=== PATIENT | female | born 1955 | race Caucasian/White ===

== ENCOUNTER → 2019-05-29 | Day surgery (SDC) | payer MEDICARE, OTHER ==
[2019-05-23 11:48] LABS: BASOPHILS # (AUTO) 0.1 (0.0-0.1); BASOPHILS % 0.7 % (0.0-1.0); EOSINOPHILS # (AUTO) 0.2 (0.0-0.4); EOSINOPHILS % 1.6 % (0.0-6.0); HEMATOCRIT 40.7 % (34.2-44.1); HEMOGLOBIN 12.8 g/dL (12.0-16.0); LYMPHOCYTES # (AUTO) 1.6 (1.0-3.2); LYMPHOCYTES % 17.8 % (18.0-39.1); MEAN CORPUSCULAR HEMOGLOBIN 27.8 pg (28-32); MEAN CORPUSCULAR HGB CONC 31.4 g/dL (31-35); MEAN CORPUSCULAR VOLUME 88.3 fL (81-99); MONOCYTES % 10.7 % (4.4-11.3); NEUTROPHILS # (AUTO) 6.3 (2.1-6.9); NEUTROPHILS % 68.9 % (38.7-80.0); PLATELET COUNT 226 x10e3/uL (140-360); RED BLOOD COUNT 4.61 x10e6/uL (3.6-5.1); RED CELL DISTRIBUTION WIDTH 13.5 % (11.7-14.4)
[2019-05-23 12:26] LABS: ALANINE AMINOTRANSFERASE 37 IU/L (0-55); ALBUMIN 3.7 g/dL (3.5-5.0); ALBUMIN/GLOBULIN RATIO 0.9 (0.8-2.0); ALKALINE PHOSPHATASE 73 IU/L (40-150); BLOOD UREA NITROGEN 9 mg/dL (7-26); BUN/CREATININE RATIO 13 (6-25); CALCIUM 9.4 mg/dL (8.4-10.2); CARBON DIOXIDE 23 mmol/L (22-29); CHLORIDE 104 mmol/L (98-107); EST GLOMERULAR FILTRATION RATE > 60 ML/MIN (60-); GLUCOSE 99 mg/dL (74-118); SODIUM 139 mmol/L (136-145)
[~2019-05-29] VITALS: Ht 162.6 cm; Wt 81.6 kg
[~2019-05-29] MED LIST: ALENDRONATE SOD70 MG PO; AMIODARONE HCL200 MG PO; ASPIR 8181 MG PO; ATORVASTATIN CA20 MG PO; BIVALRIUDIN 250 MG/VIAL VIAL IV ONE; CIPRO500 MG PO; ELIQUIS PO; FENTANYL CITRATE/PF 100MCG/2 ML INJ ONE; FLAGYL250 MG PO; GLIMEPIRIDE2 MG PO; HEPARIN SOD (PORCINE) 1000 UNIT/ML 30ML ONE; HEPARIN SOD/SOD CHLORIDE 2,000 ML ONE; IOPAMIDOL 370 MG/ML 200 ML INFUS..BTL INJ ONE; LEVAQUIN500 MG PO; LIDOCAINE HCL 2% LOCAL 20 ML VIAL ONE; METFORMIN HCL500 MG PO; METOPROLOL SUCC50 MG PO; METOPROLOL TART25 GM PO; METOPROLOL TART25 MG PO; MIDAZOLAM HCL 2 MG/2 ML VIAL ONE; NAPROXEN250 MG PO; NITROGLYCERIN/D5W 200 MCG/ML 250 ML ONE; PANTOPRAZOLE SO40 MG PO; PROTONIX40 MG PO; SODIUM CHLORIDE 0.9% 1000ML 1,000 ML ONE; SODIUM CHLORIDE 0.9% 50ML 0 ML ONE; TIZANIDINE HCL4 M1 PO; TYLENOL WITH C1 EACH PO; VERAPAMIL HCL 2.5 MG/ML 2 ML VIAL ONE; VITAMIN D PO; Z.0.PROTONIX40 MG; [UNRECOGNIZED DRUG - OTHER]
[2019-05-29 11:32] VITALS: BP 131/61
--- NOTE | 2019-05-29 21:04 | Operative Report ---
DATE OF PROCEDURE: 05/29/2019 SURGEON: Leoncio Peres MD CARDIAC SERVICE MEMBER PROCEDURE NOTE INDICATIONS: 1. Coronary artery disease, abnormal stress test. 2. Peripheral arterial disease. PROCEDURES PERFORMED: 1. Left heart catheterization, selective coronary angiography. 2. Selective catheter placement in the right common femoral artery to the right subclavian artery with unilateral extremity angiogram. 3. Deployment of right wrist TR band and right groin Mynx closure device. COMPLICATIONS: None. RECOMMENDATIONS: Medical therapy. DESCRIPTION OF PROCEDURE: Access was obtained in the right femoral artery. A 6-Bahamian sheath was placed. 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 LV end-diastolic pressure of 14. No gradient across aortic valve on pullback. Catheter was then advanced to the right subclavian artery, extreme tortuosity of the right subclavian artery was noted no stenosis. Right groin repaired using Mynx. Right wrist TR band applied. The patient discharged home same day. Leoncio Peres MD KSB/MODL /[id number]
== END | disposition home or self-care (01) ==
LOC: CATH LAB 14:02
PROVIDERS: ATTEND Internal Medicine Interventional Cardiology
DX: I25.118 Atherosclerotic heart disease of native coronary artery with other forms of angina pectoris (principal); Z01.812 Encounter for preprocedural laboratory examination; I48.0 Paroxysmal atrial fibrillation; Z79.01 Long term (current) use of anticoagulants
CPT/HCPCS: 36225; 36415; 75710; 80053; 85025; 93458; C1760; C1769 ×3; C1887; J1644; J2001; J2250; J3010; J7030; Q9967; 36217; J0583

== ENCOUNTER → 2020-09-03 | Day surgery (SDC) | payer MEDICARE ==
[2020-08-29 13:33] LABS: BASOPHILS # (AUTO) 0.1 (0.0-0.1); BASOPHILS % 0.7 % (0.0-1.0); EOSINOPHILS # (AUTO) 0.2 (0.0-0.4); EOSINOPHILS % 2.5 % (0.0-6.0); HEMATOCRIT 37.5 % (34.2-44.1); HEMOGLOBIN 11.4 g/dL (12.0-16.0); LYMPHOCYTES # (AUTO) 1.7 (1.0-3.2); LYMPHOCYTES % 19.6 % (18.0-39.1); MEAN CORPUSCULAR HEMOGLOBIN 26.5 pg (28-32); MEAN CORPUSCULAR HGB CONC 30.4 g/dL (31-35); MEAN CORPUSCULAR VOLUME 87.2 fL (81-99); MONOCYTES % 12.2 % (4.4-11.3); NEUTROPHILS # (AUTO) 5.5 (2.1-6.9); NEUTROPHILS % 64.9 % (38.7-80.0); PLATELET COUNT 282 x10e3/uL (140-360); RED CELL DISTRIBUTION WIDTH 13.9 % (11.7-14.4)
[2020-08-29 13:59] LABS: ALANINE AMINOTRANSFERASE 20 IU/L (0-55); ALBUMIN 3.9 g/dL (3.5-5.0); ALKALINE PHOSPHATASE 94 IU/L (40-150); ANION GAP 12.3 mmol/L (8-16); BLOOD UREA NITROGEN 14 mg/dL (7-26); BUN/CREATININE RATIO 17 (6-25); CALCIUM 9.6 mg/dL (8.4-10.2); CARBON DIOXIDE 29 mmol/L (22-29); CHLORIDE 104 mmol/L (98-107); CREATININE, SERUM 0.81 mg/dL (0.57-1.11); EST GLOMERULAR FILTRATION RATE > 60 ML/MIN (60-); GLUCOSE 108 mg/dL (74-118); POTASSIUM 4.3 mmol/L (3.5-5.1); SODIUM 141 mmol/L (136-145)
--- NOTE | 2020-09-02 21:00 | NUR ---
Pt contacted by phone for interview of scheduled procedure. Review of medical history and current medications. Procedural consent on day of arrival to be completed, pre-op orders, and twice bathing education completed. All questions clarified and or answered where appropriate. pt verbalizes understanding to include day of procedure expectations and practice social distancing. Pt aware to be using provided/ personal mask for COVID-19 mitigation. - cgf
[~2020-09-03] VITALS: Ht 162.6 cm; Wt 74.8 kg
[~2020-09-03] MED LIST changes: +ALPRAZOLAM 0.5 MG TAB ONE; -BIVALRIUDIN 250 MG/VIAL VIAL IV ONE; +BYDUREON B2 MG/0.85 SQ; +DIPHENHYDRAMINE HCL 25 MG CAP ONE; -HEPARIN SOD (PORCINE) 1000 UNIT/ML 30ML ONE; +LISINOPRIL2.5 MG PO; -NITROGLYCERIN/D5W 200 MCG/ML 250 ML ONE; -SODIUM CHLORIDE 0.9% 50ML 0 ML ONE
[2020-09-03 17:50] VITALS: BP 111/51
--- NOTE | 2020-09-03 17:50 | NUR ---
1750p Report provided Pillo ALARCON, review of procedural findings and medications given. Patient easily aroused. maintains airway and room air saturations of 94-96%. No gross issues of pressure, pain, pallor or dysrhythmia. IV site patent , patient hemodynamically stable with hemostasis.. right groin dressing CDI w/o s/s of bleeding. Perclose site healthy. Abdomen soft and non tender. Bilateral PPx4 present. at bedside and BS dc teaching completed. Offered po intake tolerated well . Offered toileting not required ds/rn
[2020-09-03 18:00] VITALS: BP 102/68
[2020-09-03 18:15] VITALS: BP 112/72
[2020-09-03 18:30] VITALS: BP 130/70
[2020-09-03 18:45] VITALS: BP 120/77
[2020-09-03 19:00] VITALS: BP 117/61
--- NOTE | 2020-09-03 19:00 | NUR ---
1900p---------Femoral Pt meets discharge criteria. VS wnl, alert and oriented. Pt and Family Understands discharge instruction. Overall general assess w/o gross outliers. Skin warm, dry, and intact. Right groin dressing soft w/o s/s of hematoma. Pedal pulses unchanged. IV removed and appears distal tip is intact. Site Verified with Pillo ALARCON .No gross issues. Pt maintains mask on for COVID 19 precautions being taken by wheel chair to awaiting car. Transfers w/o gross distress with discharge paperwork in hand. ds/rn
--- NOTE | 2020-09-04 | Operative Report ---
DATE OF PROCEDURE: 09/03/2020 SURGEON: Leoncio Peres MD INDICATION: Coronary artery disease, angina with abnormal stress test. PROCEDURES PERFORMED: 1. Left heart catheterization, selective coronary angiography. 2. Conscious sedation 35 minutes. 3. Deployment of right groin Perclose closure device. COMPLICATIONS: None. RECOMMENDATIONS: Medical therapy. DESCRIPTION OF PROCEDURE: Access was obtained in the right femoral artery. A 6-Pashto sheath was placed. Coronary angiography demonstrated mild coronary artery disease, 20% to 30% diffuse luminal irregularities. Mid myocardial bridge was noted, mild. No critical stenosis or occlusions. No intervention deemed necessary. LV end-diastolic pressure was normal. No gradient across the aortic valve on pullback. Right groin repaired using Perclose closure device. The patient discharged home same day. Leoncio Peres MD K[facility]/MODL /[id number]
== END | disposition home or self-care (01) ==
LOC: CATH LAB 15:02
PROVIDERS: ATTEND Internal Medicine Interventional Cardiology
DX: I25.118 Atherosclerotic heart disease of native coronary artery with other forms of angina pectoris (principal); I10 Essential (primary) hypertension; I48.0 Paroxysmal atrial fibrillation; I25.2 Old myocardial infarction; E78.5 Hyperlipidemia, unspecified; Q24.5 Malformation of coronary vessels; R94.39 Abnormal result of other cardiovascular function study; Z01.812 Encounter for preprocedural laboratory examination; Z20.828 Contact with and (suspected) exposure to other viral communicable diseases; Z79.02 Long term (current) use of antithrombotics/antiplatelets
CPT/HCPCS: 36415; 80053; 85025; 93454; C1760; J2001; J2250; J3010; J7030; Q9967; U0002; 99152

== ENCOUNTER → 2023-04-22 | Day surgery (SDC) | payer MEDICARE ==
[2023-04-16 14:04] LABS: BASOPHILS # (AUTO) 0.1 (0.0-0.1); BASOPHILS % 0.8 % (0.0-1.0); EOSINOPHILS # (AUTO) 0.2 (0.0-0.4); EOSINOPHILS % 2.3 % (0.0-6.0); HEMATOCRIT 41.4 % (34.2-44.1); HEMOGLOBIN 13.3 g/dL (12.0-16.0); LYMPHOCYTES # (AUTO) 1.7 (1.0-3.2); LYMPHOCYTES % 19.1 % (18.0-39.1); MEAN CORPUSCULAR HGB CONC 32.1 g/dL (31-35); MEAN CORPUSCULAR VOLUME 87.2 fL (81-99); MONOCYTES # (AUTO) 0.8 (0.2-0.8); MONOCYTES % 8.7 % (4.4-11.3); NEUTROPHILS # (AUTO) 6.1 (2.1-6.9); NEUTROPHILS % 68.8 % (38.7-80.0); PLATELET COUNT 254 x10e3/uL (140-360); RED BLOOD COUNT 4.75 x10e6/uL (3.6-5.1)
[~2023-04-22] MED LIST changes: -ALPRAZOLAM 0.5 MG TAB ONE; +CALCIUM ACETAT667 M1 PO; -DIPHENHYDRAMINE HCL 25 MG CAP ONE; -HEPARIN SOD/SOD CHLORIDE 2,000 ML ONE; +HYOSCYAMINE SULFATE 0.5 MG/ML INJ ONE; -IOPAMIDOL 370 MG/ML 200 ML INFUS..BTL INJ ONE; +KETAMINE 50MG/5ML SYR ONE; +LACTATED RINGER'S 1,000 ML ONE; -LIDOCAINE HCL 2% LOCAL 20 ML VIAL ONE; +LIDOCAINE HCL 2% LOCAL INJ 5 ML SDV VIAL INJ ONE; +PHENYLEPHRINE HCL 1% 10 MG/ML VIAL ONE; +PROPOFOL IV EMULSION 10 MG/ML 20 ML VIAL ONE; -SODIUM CHLORIDE 0.9% 1000ML 1,000 ML ONE; -VERAPAMIL HCL 2.5 MG/ML 2 ML VIAL ONE; +VITAMIN D250 MCG PO
[2023-04-22 11:00] VITALS: TEMP 97.2
[2023-04-22 11:30] VITALS: BP 108/57; PULSE 90; RESP 18; O2SAT 96
== END | disposition home or self-care (01) ==
LOC: OR 07:56
PROVIDERS: ATTEND Internal Medicine Gastroenterology
DX: K62.1 Rectal polyp (principal); K64.8 Other hemorrhoids; K57.30 Diverticulosis of large intestine without perforation or abscess without bleeding; Z86.010 Personal history of colon polyps; I10 Essential (primary) hypertension; I48.0 Paroxysmal atrial fibrillation; Z79.01 Long term (current) use of anticoagulants; K56.699 Other intestinal obstruction unspecified as to partial versus complete obstruction; E78.5 Hyperlipidemia, unspecified; E11.9 Type 2 diabetes mellitus without complications; Z79.899 Other long term (current) drug therapy; I25.2 Old myocardial infarction; E78.2 Mixed hyperlipidemia; Z01.812 Encounter for preprocedural laboratory examination; Z98.0 Intestinal bypass and anastomosis status
CPT/HCPCS: 36415 ×2; 45380; 82948; 85025; 93005; J1980; J2001; J2250; J2370; J2704; J3010; J7121; 45378